=== PATIENT | female | born 2000 | race Caucasian/White ===

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

== ENCOUNTER 2019-05-23 16:40 | Emergency (ER) | payer BC, OTHER ==
[~2019-05-23] VITALS: Ht 167.6 cm; Wt 90.9 kg
[~2019-05-23 16:40] MED LIST: CEFTIN500 MG PO; FLOVENT DI100 MCG/Ac IH; LOESTRIN 1/20 28 DAY PO; PROAIR HFA0.09 MG/AC IH
[2019-05-23 16:52] VITALS: TEMP 98.9
[2019-05-23] MEDS ORDERED: FLEXERIL 1010 MG/TAB PO (17:15)
[2019-05-23] MEDS ORDERED: ZOLOFT 100MG100 MG PO (17:30)
[2019-05-23] MEDS ORDERED: ZYRTEC 10MG10 MG PO (17:31)
[2019-05-23 17:46] VITALS: BP 131/70; PULSE 73
== END 2019-05-23 17:49 | disposition home or self-care (01) ==
LOC: COL.ER 16:40
DX: S39.012A Strain of muscle, fascia and tendon of lower back, initial encounter (principal); Z79.51 Long term (current) use of inhaled steroids; V49.00XA Driver injured in collision with unspecified motor vehicles in nontraffic accident, initial encounter

== ENCOUNTER 2019-12-03 20:23 | Emergency (ER) | payer OTHER ==
[~2019-12-03] VITALS: Ht 165.1 cm; Wt 104.5 kg
[~2019-12-03 20:23] MED LIST changes: +FLEXERIL 1010 MG/TAB PO; +ZOLOFT 100MG100 MG PO; +ZYRTEC 10MG10 MG PO
[2019-12-03 21:16] LABS: STREP SCREEN NEGATIVE
[2019-12-03 21:17] LABS: MEAN CELL VOLUME 93 fl (80.0-100.0); MEAN CORPUSCULAR HEMOGLOBIN 30 pg (27.0-31.0); MEAN CORPUSCULAR HGB CONC 33 g/dl (33.0-37.0); MEAN PLATELET VOLUME 9.4 fl (7.4-10.4); PLATELET COUNT 234 K/mm3 (130-400); RED BLOOD COUNT 3.96 M/mm3 (4.10-5.30); REDCELL DISTRIBUTION WIDTH-CV 13.8 % (11.5-14.5)
[2019-12-03 21:19] LABS: HEMATOCRIT 36.7 % (37.0-47.0)
[2019-12-03 21:43] LABS: ALBUMIN 3.8 gm/dL (3.5-5.0); BILIRUBIN,TOTAL 0.3 mg/dL (0.0-1.0); C-REACTIVE PROTEIN 4.1 mg/dL (0.0-0.9); CALCIUM 9.2 mg/dL (8.4-10.2); CREATININE, serum 0.54 (0.52-1.25); POTASSIUM 3.8 mmol/L (3.4-5.0); TOTAL PROTEIN 6.9 gm/dL (6.4-8.2)
[2019-12-03 22:00] LABS: MONOSCREEN POSITIVE
[2019-12-03] MEDS ORDERED: CEPHALEXIN500 M1 PO (22:29)
[2019-12-03 22:33] LABS: BAND 3 % (0-10); NEUTROPHILS 45 % (42.0-75.2); PLATELET ESTIMATE NORMAL (NORMAL)
[2019-12-03 22:37] LABS: LYMPHOCYTE 52 % (20.0-51.0)
[2019-12-03 22:42] VITALS: BP 125/69; PULSE 79; TEMP 98.9
== END 2019-12-03 22:42 | disposition home or self-care (01) ==
LOC: COL.ER 20:23
PROVIDERS: Emergency Medicine
DX: B27.90 Infectious mononucleosis, unspecified without complication (principal); J02.9 Acute pharyngitis, unspecified; J45.909 Unspecified asthma, uncomplicated; Z79.51 Long term (current) use of inhaled steroids
CPT/HCPCS: J1100; J2405; J3010; J7030

== ENCOUNTER 2021-05-06 12:45 | Emergency (ER) | payer BC ==
[~2021-05-06] VITALS: Ht 167.6 cm; Wt 81.8 kg
[~2021-05-06 12:45] MED LIST changes: +CEPHALEXIN500 M1 PO
[2021-05-06 13:27] VITALS: TEMP 98.3
[2021-05-06 14:54] LABS: COLLECTION METHOD CLEAN CATCH
[2021-05-06 15:04] LABS: BUDDING YEAST Present /hpf; MUCOUS Present /lpf; PH 6 (5-8); SQUAMOUS EPITHELIAL None Seen /hpf; URINE APPEARANCE Clear; URINE BACTERIA Rare /hpf; URINE BILIRUBIN Negative (NEGATIVE); URINE BLOOD 2+ (NEGATIVE); URINE COLOR Amber; URINE GLUCOSE Negative (NEGATIVE); URINE KETONE Negative (NEGATIVE); URINE LEUKOCYTE ESTERASE 1+ (NEGATIVE); URINE NITRATE Positive (NEGATIVE); URINE PROTEIN(semi-quant) 2+ (NEGATIVE); URINE UROBILINOGEN >=4.0 mg/dL (NEGATIVE)
[2021-05-06] MEDS ORDERED: CEFTIN500 MG PO (16:09)
[2021-05-06] MEDS ORDERED: DIFLUCAN 100MG100 MG PO (16:09)
[2021-05-06 16:45] VITALS: BP 127/66; PULSE 73
== END 2021-05-06 16:45 | disposition home or self-care (01) ==
LOC: COL.ER 12:45
PROVIDERS: Emergency Medicine
DX: N39.0 Urinary tract infection, site not specified (principal); Z32.02 Encounter for pregnancy test, result negative